=== PATIENT | female | born 1995 | race Caucasian/White ===

== ENCOUNTER 2019-05-26 06:54 | Inpatient (IN) ==
[2019-05-26] MEDS ORDERED: LACTATED RINGERS 500 ML IV PRN (07:59)
[2019-05-26] MEDS ORDERED: BUTORPHANOL 2 MG/ML VIAL IV PRN (07:59)
[2019-05-26] MEDS ORDERED: ACETAMINOPHEN 325 MG TABLET PO PRN ×2 (07:59→18:49)
[2019-05-26] MEDS ORDERED: BUTORPHANOL 1 MG/ML VIAL IV PRN (07:59)
[2019-05-26] MEDS ORDERED: ONDANSETRON 4 MG/2 ML VIAL IV PRN ×2 (07:59→18:49)
[2019-05-26] MEDS ORDERED: OXYTOCIN/LR 20 UNIT/1,000 ML BAG IV SCH (08:00)
[2019-05-26] MEDS ORDERED: LACTATED RINGERS 1,000 ML IV SCH (08:00)
[2019-05-26] MEDS ORDERED: AMPICILLIN INJ 2,000 MG in SODIUM CHLORIDE 0.9% 100 ML IV ONE (08:01)
[2019-05-26 08:19] LABS: Basophils % 0.4 % (0.0-0.8); Eosinophils # 0.1 10*3/uL (0.0-0.87); Eosinophils % 1.4 % (0.00-10.9); Hematocrit 35.4 VOL% (35.7-47.0); Hemoglobin 12.2 GM/DL (12.0-16.0); Immature Granulocytes % 1.2 %; Immature Granulocytes Absolute 0.12 #; Lymphocytes # 2.4 10*3/uL (1.4-4.0); Lymphocytes % 23.7 % (21.3-54.2); Mean Corpuscular HGB Conc 34.5 GM/DL (32-36); Mean Corpuscular Volume 92.4 FL (87-102); Mean Platelet Volume 10.5 FL (9.6-12.0); Monocytes % 8.2 % (1.7-12.7); Neutrophils % 65.1 % (38.7-73.9); Platelet Count 201 T/CUMM (130-400); Red Blood Count 3.83 MC/CUMM (3.8-5.5); Red Cell Distribution Width 13.3 % (9.3-17.3)
[2019-05-26] MEDS ORDERED: LACTATED RINGERS 1,000 ML IV ONE (08:36)
[2019-05-26 08:39] LABS: Alanine Aminotransferase 18 U/L (13-56); Albumin 2.5 G/DL (3.4-5.0); Alkaline Phosphatase 172 U/L (45-117); Aspartate Amino Transferase 23 U/L (0-37); Bilirubin,Total < 0.39 MG/DL (0.2-1.0); Blood Urea Nitrogen 10 MG/DL (7-18); Calcium 8.8 MG/DL (8.5-10.1); Estimated Glom Filtration Rate 150 ML/MIN; Glucose 80 MG/DL (74-106); Total Protein 6.4 G/DL (6.4-8.3)
[2019-05-26] MEDS ORDERED: ONDANSETRON 4 MG/2 ML VIAL IV ONE (10:41)
[2019-05-26] MEDS ORDERED: ePHEDrine 50 MG/ML AMP IV PRN ×3 (10:41→13:54)
[2019-05-26] MEDS ORDERED: hydrOXYzine HCL 25 MG/1 ML VIAL IM PRN (10:41)
[2019-05-26] MEDS ORDERED: PROMETHAZINE 25 MG/1 ML VIAL IM ONE ×2 (10:41→14:00)
[2019-05-26] MEDS ORDERED: diphenhydrAMINE 50 MG/1 ML VIAL IV PRN ×2 (10:41)
[2019-05-26] MEDS ORDERED: FAMOTIDINE 20 MG/2 ML VIAL IV ONE ×2 (10:41→14:00)
[2019-05-26] MEDS ORDERED: NALOXONE 0.4 MG/ML VIAL IV PRN (10:41)
[2019-05-26] MEDS ORDERED: fentaNYL 2 MCG/ROPIV 0.2% EPID 100 ML EPIDURAL SCH (11:00)
[2019-05-26] MEDS: AMPICILLIN INJ 1,000 MG in SODIUM CHLORIDE 0.9% 100 ML IV SCH ×2 (12:53→16:11)
[2019-05-26] MEDS ORDERED: CITRIC ACID/SODIUM CITRATE 30 ML UDCUP PO SCH (14:00)
[2019-05-26] MEDS ORDERED: LIDOCAINE 1% 50 ML VIAL ONE (16:06)
[2019-05-26] MEDS ORDERED: TRANEXAMIC ACID 1,000 MG/10 ML VIAL ONE (16:07)
[2019-05-26] MEDS ORDERED: METHYLERGONOVINE 0.2 MG/1 ML AMP ONE (16:07)
[2019-05-26] MEDS ORDERED: miSOPROStoL 200 MCG TABLET ONE (16:07)
[2019-05-26] MEDS ORDERED: miSOPROStoL 200 MCG TABLET PO ONE (18:19)
[2019-05-26] MEDS ORDERED: METHYLERGONOVINE 0.2 MG/1 ML AMP IM ONE (18:20)
[2019-05-26] MEDS ORDERED: BENZOCAINE 20%/MENTHOL 0.5% SPRAY 56 GM CAN TOP PRN (18:49)
[2019-05-26] MEDS ORDERED: BISACODYL 10 MG SUPP RECTAL PRN (18:49)
[2019-05-26] MEDS ORDERED: oxyCODONE/ACETAMINOPHEN 5-325 MG TABLET PO PRN ×2 (18:49)
[2019-05-26] MEDS ORDERED: OXYTOCIN/LR 20 UNIT/1,000 ML BAG IV ONE (18:49)
[2019-05-26] MEDS ORDERED: HYDROCORTISONE 2.5% RECTAL CREAM 30 GM TUBE TOP PRN (18:49)
[2019-05-26] MEDS ORDERED: DIPH/TET/ACEL PERT BOOSTER VACCINE 0.5 ML VIAL IM ONE (18:49)
[2019-05-26] MEDS ORDERED: RHO(D) IMMUNE GLOBULIN 300 MCG SYRINGE IM ONE (18:49)
[2019-05-26] MEDS ORDERED: WITCH HAZEL PADS 100/JAR TOP PRN (18:49)
[2019-05-26] MEDS ORDERED: LANOLIN 50% CREAM 0.3 OZ TUBE TOP PRN (18:49)
[2019-05-26] MEDS ORDERED: MEASLES/MUMPS/RUBELLA VACCINE 0.5 ML VIAL SUBCUT ONE (18:49)
[2019-05-26] MEDS: IBUPROFEN 800 MG TABLET PO PRN (21:47)
[2019-05-27 05:57] LABS: Basophils % 0.2 % (0.0-0.8); Eosinophils # 0.1 10*3/uL (0.0-0.87); Eosinophils % 0.4 % (0.00-10.9); Hemoglobin 10.3 GM/DL (12.0-16.0); Immature Granulocytes % 0.7 %; Immature Granulocytes Absolute 0.09 #; Lymphocytes # 1.5 10*3/uL (1.4-4.0); Lymphocytes % 11.9 % (21.3-54.2); Mean Corpuscular HGB Conc 34.3 GM/DL (32-36); Mean Corpuscular Volume 91.5 FL (87-102); Mean Platelet Volume 10.2 FL (9.6-12.0); Monocytes % 7.8 % (1.7-12.7); Platelet Count 152 T/CUMM (130-400); Red Blood Count 3.28 MC/CUMM (3.8-5.5); White Blood Count 12.2 T/CUMM (4-12)
[2019-05-27] MEDS: IBUPROFEN 800 MG TABLET PO PRN ×3 (06:05→20:29)
[2019-05-27] MEDS: DOCUSATE SODIUM 100 MG CAPSULE PO SCH ×2 (08:17→20:29)
[2019-05-27] MEDS ORDERED: BUTALBITAL/ACETAMIN/CAFFEINE 50-325-40 MG TABLET PO ONE (16:18)
[2019-05-27] MEDS ORDERED: LACTATED RINGERS 500 ML IV ONE (16:20)
[2019-05-27] MEDS: BUTALBITAL/ACETAMIN/CAFFEINE 50-325-40 MG TABLET PO SCH (23:55)
[2019-05-28] MEDS: SUMAtriptan 6 MG/0.5 ML VIAL SUBCUT PRN ×2 (05:59→08:15)
[2019-05-28 07:24] VITALS: BP 111/60
[2019-05-28] MEDS: BUTALBITAL/ACETAMIN/CAFFEINE 50-325-40 MG TABLET PO SCH (09:03)
[2019-05-28] MEDS: DOCUSATE SODIUM 100 MG CAPSULE PO SCH (09:03)
[2019-05-28] MEDS: IBUPROFEN 800 MG TABLET PO PRN (13:15)
== END 2019-05-28 14:10 | disposition home or self-care (01) | DRG 807 ==
LOC: N.LDOUT 06:54 → N.LD 06:56 → N.OB 23:41
PROVIDERS: ADMIT Obstetrics & Gynecology; ATTEND Obstetrics & Gynecology